=== PATIENT | female | born 1960 | race Native Hawaiian/Other Pacific Islander ===

== ENCOUNTER 2018-03-25 14:16 | Emergency (ER) | payer OTHER ==
[2018-03-25 14:44] VITALS: BP 113/65
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
== END 2018-03-25 17:35 | disposition home or self-care (01) ==
LOC: ED 14:16
DX: M25.512 Pain in left shoulder (principal); E78.00 Pure hypercholesterolemia, unspecified
CPT/HCPCS: 99282